=== PATIENT | male | born 1985 | race Two or more races ===

== ENCOUNTER 2018-09-10 04:37 | Emergency (ER) | payer OTHER ==
[2018-09-10] MEDS: IBUPROFEN 600 MG TAB PO (05:22)
[2018-09-10] MEDS: AMOXICILLIN 500 MG CAP PO (05:26)
== END 2018-09-10 05:47 | disposition home or self-care (01) ==
LOC: FTE 04:37
DX: K11.21 Acute sialoadenitis (principal); Z85.6 Personal history of leukemia
CPT/HCPCS: 99283; Z7502

== ENCOUNTER 2018-09-17 08:34 | Emergency (ER) | payer OTHER ==
[2018-09-17] MEDS: FLUORESCEIN STRIP RIGHT EYE (09:12)
[2018-09-17] MEDS: TETRACAINE 0.5% 4 ML OPH RIGHT EYE (09:12)
== END 2018-09-17 09:25 | disposition home or self-care (01) ==
LOC: FTE 08:34
DX: H11.31 Conjunctival hemorrhage, right eye (principal); C95.91 Leukemia, unspecified, in remission
CPT/HCPCS: 99283; Z7610

== ENCOUNTER 2018-09-20 21:55 | Emergency (ER) | payer OTHER | END 2018-09-21 01:35 | disposition home or self-care (01) | LOC: FTE 21:55 | DX: H11.31 Conjunctival hemorrhage, right eye (principal); C95.91 Leukemia, unspecified, in remission | CPT/HCPCS: 99282; Z7502 ==

== ENCOUNTER 2018-11-24 04:55 | Emergency (ER) | payer OTHER | END 2018-11-24 05:36 | disposition home or self-care (01) | LOC: FTE 04:55 | DX: K08.89 Other specified disorders of teeth and supporting structures (principal); Z85.6 Personal history of leukemia | CPT/HCPCS: 99283; Z7502 ==